=== PATIENT | female | born 1990 | race African-American/Black ===

== ENCOUNTER 2023-06-09 09:45 | Day surgery (SDC) | payer OTHER ==
[2023-06-09 12:00] LABS: #Eosinphils 0.1 10x3/uL (0.0-0.5); #Monocytes 0.4 10x3/uL (0.0-1.1); #Neutrophils 5.2 10x3/uL (1.5-8.4); %Basophils 0.3 % (0.0-2.0); %Lymphocytes 19.1 % (18.0-47.0); %Monocytes 5.7 % (0.0-10.0); %Neutrophils 73.6 % (40.0-75.0); Hematocrit 20.6 % (34.9-44.5); Hemoglobin 6.3 g/dL (12.0-15.5); Mean Corpuscular HGB CONC 30.6 g/dL (32.0-36.0); Mean Corpuscular Hemoglobin 20.1 pg (27.0-33.0); Mean Corpuscular Volume 65.6 fl (81.6-98.3); Mean Platelet Volume 9.9 fl (7.4-10.4); Platelet Count 238 10x3/uL (150-450); RBC Distribution Width 19.3 % (11.5-14.5); Red Blood Cell (RBC) Count 3.14 10x6/uL (3.90-5.03)
[2023-06-09] MEDS ORDERED: Acetaminophen 500 MG TAB ONE (12:07)
[2023-06-09 12:08] LABS: ALT (SGPT) 8 U/L (8-55); AST (SGOT) 15 U/L (5-34); Albumin 2.9 g/dL (3.5-5.0); Alkaline Phosphatase 101 U/L (40-110); Anion Gap 12 mmol/L (10-20); BUN (Urea Nitrogen) 7 mg/dL (7.0-18.7); Bilirubin, Total 0.7 mg/dL (0.2-1.2); Calc. Creatinine Clearance 0 mL/min (70-130); Calcium 8.1 mg/dL (7.8-10.44); Carbon Dioxide 21 mmol/L (22-29); Chloride 107 mmol/L (98-107); Estimated GFR 120; Globulin 3.1 g/dL (2.4-3.5); Glucose 85 mg/dL (70-105); Potassium 3.6 mmol/L (3.5-5.1); Sodium 136 mmol/L (136-145)
[2023-06-09 15:30] LABS: Bilirubin Neg (Negative); Blood, Urine Negative (Negative); Clarity Clear (Clear); Glucose, Urine (Dipstick) Normal (Negative); Ketone, Urine Negative (Negative); Leukocyte 100 (Negative); Nitrite Negative (Negative); Protein, Urine (Dipstick) 15 mg/dl (Neg-Trace); Specific Gravity, Urine 1.015 (1.005-1.030)
[2023-06-09 15:40] LABS: CAUTI Indications for Culture Pregnancy; RBC/HPF 0-3 HPF (0-3)
[2023-06-09 15:41] LABS: Bacteria/HPF 2+ HPF (None Seen); Mucous/LPF 3+ LPF (<2+)
[2023-06-09 15:44] LABS: Urine Culture Reflex Yes Yes
[2023-06-09 16:26] LABS: Anisocytosis MODERATE=16-30 cells (100X) (0-5/hpf); Hypochromia SLIGHT = 6-15 cells (100X) (0-5/hpf); Microcytosis MARKED = >30 cells (100X) (0-5/hpf); Platelet Adequacy Comment Appears Adequate
== END 2023-06-09 17:24 | disposition home health service (06) ==
LOC: CSHERS 09:45 → CSHLD/OP 16:17
PROVIDERS: ATTEND Student in an Organized Health Care Education/Training Program
DX: O99.013 Anemia complicating pregnancy, third trimester (principal); D64.9 Anemia, unspecified; Z3A.00 Weeks of gestation of pregnancy not specified
CPT/HCPCS: 36430; 59025; 80053; 81001; 85025; 86850; 86900; 86901; 87086; 93005; P9016

== ENCOUNTER 2023-07-11 14:48 | Day surgery (SDC) | payer MEDICAID ==
[2023-07-11] MEDS ORDERED: hydrALAZINE 20 MG/ML VIAL SLOW IVP PRN (16:06)
[2023-07-11] MEDS ORDERED: Acetaminophen 500 MG TAB PO SCH (16:15)
[2023-07-11 17:32] LABS: Hematocrit 25.7 % (34.9-44.5); Hemoglobin 7.8 g/dL (12.0-15.5)
[2023-07-11] MEDS ORDERED: Fluconazole 100 MG TAB PO SCH (18:30)
== END 2023-07-11 18:48 | disposition home or self-care (01) ==
LOC: CSHLD/OP 14:48
PROVIDERS: ATTEND Student in an Organized Health Care Education/Training Program
DX: O99.891 Other specified diseases and conditions complicating pregnancy (principal); R10.2 Pelvic and perineal pain; O47.1 False labor at or after 37 completed weeks of gestation; O99.013 Anemia complicating pregnancy, third trimester; D64.9 Anemia, unspecified; O09.33 Supervision of pregnancy with insufficient antenatal care, third trimester; O99.333 Smoking (tobacco) complicating pregnancy, third trimester; F17.200 Nicotine dependence, unspecified, uncomplicated; O99.343 Other mental disorders complicating pregnancy, third trimester; F41.9 Anxiety disorder, unspecified; O98.213 Gonorrhea complicating pregnancy, third trimester; A54.9 Gonococcal infection, unspecified; O98.819 Other maternal infectious and parasitic diseases complicating pregnancy, unspecified trimester; A59.9 Trichomoniasis, unspecified; Z3A.37 37 weeks gestation of pregnancy; Z79.899 Other long term (current) drug therapy
CPT/HCPCS: 85014; 85018

== ENCOUNTER 2023-07-21 11:29 | Inpatient (IN) | payer MEDICAID, SELFPAY ==
[2023-07-21] MEDS ORDERED: Lidocaine 1% (PF) 30 ML VIAL SC PRN (11:52)
[2023-07-21] MEDS ORDERED: Promethazine HCl 25 MG/ML VIAL IM PRN ×2 (11:52→14:05)
[2023-07-21] MEDS ORDERED: Ondansetron PF 4 MG/2 ML Vial IVP PRN ×2 (11:52→14:05)
[2023-07-21] MEDS ORDERED: Methylergonovine 0.2 MG/ML VIAL IM PRN (11:52)
[2023-07-21] MEDS ORDERED: Docusate 100 MG CAP PO PRN (11:52)
[2023-07-21] MEDS ORDERED: hydrALAZINE 20 MG/ML VIAL SLOW IVP PRN (11:52)
[2023-07-21] MEDS ORDERED: Acetaminophen 500 MG TAB PO PRN (11:52)
[2023-07-21] MEDS ORDERED: Butorphanol Tartrate 1 MG/ML VIAL SLOW IVP PRN (11:52)
[2023-07-21] MEDS ORDERED: Misoprostol 200 MCG TAB PR PRN (11:52)
[2023-07-21] MEDS ORDERED: fentaNYL 50 mcg/mL 1 mL Vial SLOW IVP PRN (11:52)
[2023-07-21] MEDS ORDERED: Diphenoxylate HCl/Atropine Tablet PO PRN (11:52)
[2023-07-21] MEDS ORDERED: Ibuprofen 800 MG TAB PO PRN (11:52)
[2023-07-21] MEDS ORDERED: Carboprost 250 MCG/ML AMP IM PRN (11:52)
[2023-07-21] MEDS ORDERED: Oxytocin 30 units/NS 500 ML 500 ML IV SCH ×3 (12:00)
[2023-07-21] MEDS ORDERED: Lactated Ringer's 1,000 ML IV SCH ×2 (12:00)
[2023-07-21] MEDS ORDERED: fentaNYL/Ropivacaine Epidural 100 ML ONE (12:25)
[2023-07-21 12:50] VITALS: BMI 29.9
[2023-07-21 12:56] LABS: Hematocrit 26.4 % (34.9-44.5); Hemoglobin 8.1 g/dL (12.0-15.5); Mean Corpuscular HGB CONC 30.7 g/dL (32.0-36.0); Mean Corpuscular Hemoglobin 20.6 pg (27.0-33.0); Mean Platelet Volume 9.5 fl (7.4-10.4); Platelet Count 315 10x3/uL (150-450); RBC Distribution Width 22.1 % (11.5-14.5); Red Blood Cell (RBC) Count 3.94 10x6/uL (3.90-5.03); White Blood Cell (WBC) Count 8.4 10x3/uL (3.5-10.5)
[2023-07-21 13:01] LABS: Syphilis Antibody Nonreactive (Nonreactive)
[2023-07-21 13:03] LABS: Hep B Surf Ag - L&D Non-Reactive S/CO (NonReactive)
[2023-07-21 13:14] LABS: Glucose 68 mg/dL (70-105)
[2023-07-21] MEDS ORDERED: Lactated Ringer's 500 ML IV PRN (14:05)
[2023-07-21] MEDS ORDERED: ePHEDrine Sulfate 50 MG/10 ML VIAL SLOW IVP PRN (14:05)
[2023-07-21] MEDS ORDERED: diphenhydrAMINE 50 MG/ML VIAL IVP PRN (14:05)
[2023-07-21] MEDS ORDERED: Moisturizing Cream (Eucerin) 113 GM JAR TOP PRN (14:05)
[2023-07-21] MEDS ORDERED: Acetaminophen 325 MG TAB PO PRN (14:05)
[2023-07-21] MEDS ORDERED: Naloxone HCl 0.4 mg/ml Vial IVP PRN ×2 (14:05)
[2023-07-21] MEDS ORDERED: Communication Order-Pharmacy FS SCH (14:15)
[2023-07-21] MEDS ORDERED: fentaNYL 2 mcg/Ropivacaine 0.2% Epidural 100 ML CADD EPIDURAL SCH (14:15)
[2023-07-21] MEDS ORDERED: Tranexamic Acid 1,000 MG/10 ML VIAL ONE (20:03)
[2023-07-21] MEDS: Dextrose 5%-Lactated Ringers 1,000 ML IV SCH ×2 (23:22→23:23)
[2023-07-22] MEDS ORDERED: Misoprostol 200 MCG TAB VAG PRN (01:18)
[2023-07-22] MEDS ORDERED: Lanolin Ointment 7 GM TUBE TOP PRN (01:18)
[2023-07-22] MEDS ORDERED: Oxytocin 30 units/NS 500 ML 500 ML IV SCH (01:18)
[2023-07-22] MEDS ORDERED: Ondansetron PF 4 MG/2 ML Vial IVP PRN (01:18)
[2023-07-22] MEDS ORDERED: diphenhydrAMINE 25 MG CAP PO PRN (01:18)
[2023-07-22] MEDS ORDERED: Boostrix 0.5 ML (Tdap) VIAL (>/=7 yrs of age) IM ONE (01:18)
[2023-07-22] MEDS ORDERED: Milk Of Magnesia 30 ML UDCUP PO PRN (01:18)
[2023-07-22] MEDS ORDERED: Methylergonovine 0.2 MG/ML VIAL IM PRN (01:18)
[2023-07-22] MEDS ORDERED: hydrALAZINE 20 MG/ML VIAL SLOW IVP PRN (01:18)
[2023-07-22] MEDS ORDERED: Benzocaine-Menthol 82.5 ML CAN TOP PRN (01:18)
[2023-07-22] MEDS ORDERED: Preparation H Ointment 28 GM TUBE PR PRN (01:18)
[2023-07-22] MEDS ORDERED: Bisacodyl 10 MG SUPP PR PRN (01:18)
[2023-07-22] MEDS: Ibuprofen 800 MG TAB PO SCH ×3 (05:05→21:58)
[2023-07-22 05:14] LABS: Hematocrit 25.6 % (34.9-44.5); Hemoglobin 7.9 g/dL (12.0-15.5)
[2023-07-22] MEDS: Docusate 100 MG CAP PO SCH ×2 (09:40→21:58)
[2023-07-22] MEDS: Ferrous Sulfate 325 MG TAB PO SCH (09:40)
[2023-07-22] MEDS: Prenatal Vitamin 1 TAB PO SCH (09:40)
[2023-07-23] MEDS: Ibuprofen 800 MG TAB PO SCH ×2 (06:39→07:36)
[2023-07-23] MEDS: Ferrous Sulfate 325 MG TAB PO SCH ×2 (07:35→08:29)
[2023-07-23 08:00] VITALS: BP 125/59; TEMP 98
[2023-07-23] MEDS: Prenatal Vitamin 1 TAB PO SCH (08:29)
[2023-07-23] MEDS: Docusate 100 MG CAP PO SCH (08:29)
== END 2023-07-23 14:05 | disposition home or self-care (01) | DRG 807 ==
LOC: CSHLD/OP 11:29 → CSHLD 12:21 → CSHPP 07-22 00:40
PROVIDERS: ADMIT Family Medicine; ATTEND Family Medicine
PROC: 10E0XZZ Delivery of Products of Conception, External Approach (ICD-10-PCS; principal; 2023-07-21)
PROC: 0KQM0ZZ Repair Perineum Muscle, Open Approach (ICD-10-PCS; 2023-07-21)
PROC: 10H07YZ Insertion of Other Device into Products of Conception, Via Natural or Artificial Opening (ICD-10-PCS; 2023-07-21)
PROC: 3E0E7GC Introduction of Other Therapeutic Substance into Products of Conception, Via Natural or Artificial Opening (ICD-10-PCS; 2023-07-21)
PROC: 3E0334Z Introduction of Serum, Toxoid and Vaccine into Peripheral Vein, Percutaneous Approach (ICD-10-PCS; 2023-07-22)
DX: O99.02 Anemia complicating childbirth (principal); Z37.0 Single live birth; Z3A.39 39 weeks gestation of pregnancy; O77.0 Labor and delivery complicated by meconium in amniotic fluid; O76 Abnormality in fetal heart rate and rhythm complicating labor and delivery; D50.9 Iron deficiency anemia, unspecified; O99.334 Smoking (tobacco) complicating childbirth; F17.210 Nicotine dependence, cigarettes, uncomplicated; O70.1 Second degree perineal laceration during delivery
CPT/HCPCS: 36415; 82947; 85014; 85018; 85027; 85461; 86780; 86850; 86900; 86901; 87340; 90384; 96372; J2590